=== PATIENT | male | born 1965 | race Caucasian/White ===

== ENCOUNTER → 2017-08-07 15:22 | Outpatient (CLI) | payer BC ==
[2012-09-16 07:06] VITALS: BMI 31.6
[~2017-08-07 15:22] MED LIST: BAYER CHEWABLE81 MG PO; LEVOTHYROXINE75 MCG PO; OMEPRAZOLE40 MG PO; PERCOCET 10/3251 TA1 PO; PRAVASTATIN SOD10 MG PO; RELAFEN750 MG PO; ZIAC 10-6.25 MG1 TAB PO
[2017-10-01 06:18] VITALS: BMI 36.0
== END | disposition home or self-care (01) ==
LOC: D.MRI 15:22
DX: M76.71 Peroneal tendinitis, right leg (principal)

== ENCOUNTER 2017-10-01 05:48 | Day surgery (SDC) | payer BC ==
[2017-09-28 11:19] LABS: HEMATOCRIT 37.7 % (42.0-54.0); MCH 24.2 pg (26.0-34.0); MCHC 31.8 g/dL (31.0-37.0); MEAN PLATELET VOLUME 8.5 fL (7.4-10.4); RBC 4.96 10x6/uL (4.20-6.10); RDW 14.2 % (11.5-14.5); WBC 6.6 10x3/uL (4.8-10.8)
[~2017-10-01] VITALS: Ht 182.9 cm; Wt 120.2 kg
[~2017-10-01 05:48] MED LIST changes: -PERCOCET 10/3251 TA1 PO
[2017-10-01 06:18] VITALS: BP 122/77; Ht 182.9 cm; Wt 120.2 kg
[2017-10-01] MEDS ORDERED: PERCOCET 10/3251 TA1 PO (09:32)
--- NOTE | 2017-10-01 12:37 | OP ---
PATIENT NAME: ODESSA CASTREJON MEDICAL RECORD: [id number] :67 LOCATION:D.OPS ADMISSION DATE: SURGEON: MINISTERIO QUINTEROS MD DATE OF OPERATION: 10/01/2017 PREOPERATIVE DIAGNOSES: 1. 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 2. Diffuse tearing of the peroneus brevis tendon of the right ankle. POSTOPERATIVE DIAGNOSES: 1. 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 2. Diffuse tearing of the peroneus brevis tendon of the right ankle. PROCEDURE: 1. Brostrom ankle reconstruction. 2. Peroneal tendon debridement with reconstruction and repair. SURGEON: Ministerio Quinteros MD ANESTHESIA: General. INTRAOPERATIVE COMPLICATIONS: None. SUMMARY OF PATHOLOGIC FINDINGS: The patient had multiple longitudinal splits in the peroneus brevis with severe tendinitis as well as synovitis. Furthermore, the patient had a complete loss of the AITF complex as well as the calcaneofibular ligament. This was fixed with both internal bracing and a standard Brostrom repair kit and the repair of the peroneal tendons as described below. OPERATIVE SUMMARY IN DETAIL: After obtaining the appropriate preoperative orthopedic surgery consent as well as anesthetic consultation, evaluation and clearance, the patient was brought to the operating room and placed on the operating room table in supine position. After general laryngeal mask airway was administered, the patient was placed in a left lateral decubitus position. All pressure points were well padded to include down leg peroneal pad as well as axillary roll. The patient was held firmly to the operating table using the vacuum pack suction system. Right lower extremity was repaired with tourniquet about the proximal aspect. The right lower extremity was then prepped and draped in routine sterile fashion. Leg was elevated and exsanguinated, tourniquet inflated to 350 mmHg. Curvilinear incision was made down the center aspect of the lateral malleolus to gain access both posteriorly, inferiorly, as well as anteriorly. Subperiosteal dissection was carried back. After a small incision was made in the peroneus brevis tendon sleeve. The examination there was noted. Attention was then carried over toward the ankle stabilization. Dissection was carried down to the lateral aspect of the talus between the superior and inferior articulation. The internal brace with a 3.5 PushLock was first placed into the distal tip of the talus. It was then drilled and tapped in the talar wall itself. Small tip of the hemostat was placed to ensure non-over tightening. After seating the internal brace, attention was then turned to the small suture tacks, 3 in total, placed in the 3 o'clock, 5 o'clock and 6 o'clock position with excellent capture of the AITF and calcaneofibular ligament tissue. These were then anchored independently higher up on the fibula using the smaller 2.6 PushLocks. This resulted in excellent anchorage. At this point, all residual tissue was reapproximated in a [id number] style fashion OPERATIVE REPORT [id number] ODESSA CASTREJON of the entire periosteal sleeve and it was actually advanced over the posterior aspect of the [id number] sleeve tied down with FiberWire as well. Having completed this, the peroneus brevis tendon in its entirety was exposed. Then, two #2.0 FiberWires were used to put a running lock stitch in to the entire tendon to reapproximate all of the longitudinal tears in it. It had multiple splits and this was done from distal to proximal around the posterolateral aspect of the fibula. Having completed this, the peroneus longus and brevis tendon sheath was reapproximated with 2-0 Vicryl. The wound was then closed with #1 Vicryl, 2-0 Vicryl, and skin jose. Sterile dressings were applied. Tourniquet was deflated and a posterior L&U splint was applied with the foot in eversion. The patient was awakened and taken to the recovery room in stable condition. All final needle, instrument, and sponge counts were correct. TRANSINT:[id number] Voice Confirmation ID: [id number] DOCUMENT ID: [id number] NELI GOMES, MINISTERIO CORCORAN at 1237 CC: [id number] DICTATION DATE: 10/01/17936 DISTRICT SUPERINTENDENT: 10/01/17 1130 REG [facility] [address] [id number]
== END 2017-10-01 12:10 | disposition home or self-care (01) ==
LOC: D.OPS 05:48 → D.PAN 07:30 → D.OPS 07:30
PROVIDERS: Anesthesiology
DX: M25.371 Other instability, right ankle (principal); S96.811A Strain of other specified muscles and tendons at ankle and foot level, right foot, initial encounter; M76.71 Peroneal tendinitis, right leg; M65.871 Other synovitis and tenosynovitis, right ankle and foot; X58.XXXA Exposure to other specified factors, initial encounter; Z01.812 Encounter for preprocedural laboratory examination

== ENCOUNTER → 2019-04-10 10:04 | Outpatient (CLI) | payer OTHER ==
[2017-10-01 06:18] VITALS: BMI 36.0
--- NOTE | ~2019-04-10 | ST ---
PATIENT:ODESSA CASTREJON MEDICAL RECORD: [id number] SEX: M LOCATION:[facility] ORDER #: ADMISSION DATE: 04/10/19 AGE OF PATIENT: 54 REFERRING PHYSICIAN: INTERPRETING PHYSICIAN: DIVYA COSTA MD DATE OF SERVICE: 04/10/2019 PROCEDURE: Nuclear stress test. INDICATION: Angina, hypertension. He was exercised on standard Jamir protocol for 10 minutes achieving greater than 85% max target heart rate response with 31 mCi of sestamibi injected at peak stress, 10 mCi used previously for rest images. FINDINGS: Gated SPECT reveals preserved ejection fraction at 63% with good wall motion and thickening and brightening throughout all segments. SPECT imaging Cardiolite was used as myocardial fusion agent. There is homogeneous uptake throughout all segments at rest and stress with no evidence of inducible ischemia or previous infarction. OVERALL IMPRESSION: 1. This is a normal nuclear stress test with no evidence of inducible ischemia or previous infarction. 2. Gated SPECT reveals a preserved ejection fraction at 63%. In this patient with ongoing symptomatology, the current scan does not suggest the presence of hemodynamically significant coronary artery disease. Evaluate noncardiac etiology of chest pain. TRANSINT:[id number] Voice Confirmation ID: [id number] DOCUMENT ID: [id number] DIVYA COSTA MD CC: [id number] DICTATION DATE: 04/11/19 0937 RAMP JOCKEY: 04/12/19 0120 [facility] CLI 04/10/19 [facility] [address] [place] [address]
[~2019-04-10 10:04] MED LIST changes: +PERCOCET 10/3251 TA1 PO
== END | disposition home or self-care (01) ==
LOC: D.HCCARDIO 10:04
PROVIDERS: ATTEND Internal Medicine Cardiovascular Disease
DX: R07.9 Chest pain, unspecified (principal)